=== PATIENT | female | born 1950 | race Caucasian/White ===

== ENCOUNTER → 2016-05-20 | Day surgery (SDC) | payer OTHER ==
--- NOTE | 2016-05-23 09:31 | PATH ---
Surgical Pathology Report Patient Name: VIRGIL ERWIN [facility]. Rec. #: [id number] /Age/Gender: 1950 (Age: 66) / F Account: [id number] Location: [facility] Taken: 05/20/2016 Received: 05/20/2016 Reported: 05/23/2016 Physicians: Carolyn Reis M.D. Specimen(s) Received RIGHT BREAST BIOPSY AT 12:30, 3-4CM FN Clinical History Rule out lipoma or other fat containing structure Final Diagnosis RIGHT BREAST, 12:30, 3-4 CM FROM NIPPLE, NEEDLE CORE BIOPSY: BENIGN FIBROFATTY TISSUE WITH FOCAL FAT NECROSIS AND ASSOCIATED CHRONIC INFLAMMATION. NO CARCINOMA IDENTIFIED. Comment: Recommend correlation with clinical and radiologic findings and follow up as clinically indicated. Electronically Signed Lc Cunningham M.D. Gross Description Received in formalin, labeled "right breast 12:30 3-4 cm from nipple," are 5 campbell-yellow, cylindrical portions of fibroadipose tissue ranging from 0.3-2.2 cm. in length and averaging 0.2 cm. in diameter. The specimen is submitted in toto in one cassette. Time to formalin fixation: 2 minutes Total formalin fixation time: Approximately 8 hours. [facility]/05/20/2016 [facility]/05/20/2016
== END | disposition home or self-care (01) ==
LOC: FRADUS-SUR 13:21
PROVIDERS: ATTEND Surgery
PROC: 0HBT3ZX Excision of Right Breast, Percutaneous Approach, Diagnostic (ICD-10-PCS; principal; 2016-05-20)
DX: N63 Unspecified lump in breast (principal); N64.1 Fat necrosis of breast
CPT/HCPCS: 19083; 87899; 88305-TC; A4648; G0206-TC

== ENCOUNTER 2016-12-04 14:51 | Emergency (ER) | payer OTHER ==
--- NOTE | 2016-12-04 15:05 | PDOC ---
Attending Attestation - Resident Resident Name: Louise De Anda - ED Attending Attestation I have performed the following: I have examined & evaluated the patient, The case was reviewed & discussed with the resident, I agree w/resident's findings & plan, Exceptions are as noted - Medical Decision Making 12/04/16 15:05 I, Dr. Leeann Redding, DO, attest that this document has been prepared under my direction and personally reviewed by me in its entirety. I further attest, that it accurately reflects all work, treatment, procedures and medical decision -making performed by me. 12/04/16 16:38 a/p: 66yo female with a brief episode of feeling lightheaded when she got up today in [employer] -labs -ekg -orthostatics -has had similar symptoms in the past when she stands too quickly -stopped her HCTZ earlier this week -reassess <Leeann Redding - Last Filed: 12/04/16 16:38> - HPI HPI: 12/04/16 16:44 Patient is a 66 year old female with a significant past medical history of HTN Who presents to the ED with complaints of dizziness that began this morning. Patient reports being at [employer] when she stood up and felt dizzy and lost her balance. She reports at time of incident the room was spinning followed by lightheadedness. PAtient states symptoms subsided after 5 minutes once she sat down. She reports having a slight headache but states that is her baseline. As per patient's daughter, patient appeared slightly pale when she experiencing the dizziness episode. Patient reports being prescribed gabapentin which she states she stopped taking as well as HCTZ which she states she stopped taking 1 week ago. She reports hx of dizziness when she gets up to fast. Denies chest pain, SOB. Denes vomiting, nausea. Denies dysuria, constipation, diarrhea. Denies any other symptoms. Allergies: None Social history: Lives with . No alcohol. No smoking. No illicit drugs, Surgical history: None PMD: Dr. Cruz - Physicial Exam PE: 12/04/16 16:44 GENERAL: Awake, alert, and fully oriented, in no acute distress HEAD: No signs of trauma EYES: PERRLA, EOMI, sclera anicteric, conjunctiva clear ENT: Auricles normal inspection, hearing grossly normal, nares patent, oropharynx clear without exudates. Moist mucosa NECK: Normal ROM, supple, no lymphadenopathy, JVD, or masses LUNGS: Breath sounds equal, clear to auscultation bilaterally. No wheezes, and no crackles HEART: Regular rate and rhythm, normal S1 and S2, no murmurs, rubs or gallops ABDOMEN: Soft, nontender, normoactive bowel sounds. No guarding, no rebound. No masses EXTREMITIES: +Trace Edema in legs bilaterally. Normal range of motion. No clubbing or cyanosis. No cords, erythema, or tenderness NEUROLOGICAL: Cranial nerves II through XII grossly intact. Normal speech, normal gait SKIN: Warm, Dry, normal turgor, no rashes or lesions noted. <Arron Barcenas - Last Filed: 12/04/16 16:48> Heart Score/ECG Review - ECG Intrepretation Comment:: 12/04/16 16:39 sinus at 74, nl axis, nl interval, q waves inferior leads that are age indeterminate, t wave inversions III <Leeann Redding - Last Filed: 12/04/16 16:38>
--- NOTE | 2016-12-04 15:18 | PDOC ---
History of Present Illness - General Stated Complaint: LIGHTHEADED Time Seen by Provider: 12/04/16 15:02 History Source: Patient - History of Present Illness Initial Comments: 12/04/16 15:18 CC: Dizziness (resolved) Patient is a 66 y.o. female with a PMH of HTN who presents to our ED this afternoon c/o an episode of dizziness while in [employer] this afternoon. Patient states she stood up as part of the worship ceremony and felt dizzy which she describes as the room spinning. Patient denies any associated LOC, confusion, visual changes, shortness of breath or chest pain. Patient states the episode resolved after sitting for 1-2 minutes. Patient notes her PCP increased her Hydrochlorothiazide dose two weeks previous, however she stopped taking the higher dose last Monday because she did not feel it was effective. Patient also notes recent UTI for which she recieved unknown Abx treatment finished on Monday (12/02). Past History - Past Medical History Home Medications: Ambulatory Orders Lisinopril 10 mg PO DAILY 12/04/16 Review of Systems - Review of Systems Constitutional: No: Chills, Fever HEENTM: No: Blurred Vision, Throat Pain Respiratory: No: Cough, Orthopnea Cardiac (ROS): Yes: Lightheadedness. No: Chest Pain, Irregular Heart Rate, Palpitations, Syncope ABD/GI: No: Constipated, Diarrhea, Nausea, Vomiting All Other Systems: Reviewed and Negative *Physical Exam - Physical Exam General Appearance: Yes: Nourished, Appropriately Dressed HEENT: positive: EOMI, Normal Voice Neck: positive: Trachea midline, Supple Respiratory/Chest: positive: Lungs Clear, Normal Breath Sounds Cardiovascular: positive: Regular Rhythm, Regular Rate, S1, S2 Gastrointestinal/Abdominal: positive: Normal Bowel Sounds, Soft Extremity: positive: Normal Capillary Refill, Normal Inspection, Pedal Edema ( Trace pedal edema) Integumentary: positive: Normal Color, Dry, Warm Neurologic: positive: Fully Oriented, Alert ED Treatment Course - LABORATORY CBC & Chemistry Diagram: 12/04/16 15:39 12/04/16 15:39 Medical Decision Making - Medical Decision Making 12/04/16 15:22 Patient is a 66 y.o. female who presents c/o an isolated episode of dizziness. Initial DDx is vasovagal vs. dehydration vs. cardiac arrhythmia. PLAN: 1. CBC, CMP, Mg 2. EKG 3. Orthostatic VS 12/04/16 16:25 EKG shows NSR (HR 74 BPM) with Q waves in Lead III and postive T waves in Lead II suggesting prior myocardial infarct. Normal OH and no QT prolongation. No discernible ST segment elevation/depression. Orthostatic VS negative. CBC, CMP within normal limits. Patient's UA was nitrite negative with 2+ blood. Urine culture sent, patient to keep scheduled appointment with PCP tomorrow. *DC/Admit/Observation/Transfer Diagnosis at time of Disposition: Lightheadedness - Discharge Dispostion Disposition: HOME Condition at time of disposition: Good Admit: No - Referrals Referrals: Willie Cruz MD [Primary Care Provider] - - Post Discharge Activity Forms/Work/School Notes: Back to Work
[2016-12-04 15:53] VITALS: BMI 76.4
[2016-12-04 15:54] LABS: BASOPHIL 0.2 % (0-2.0); EOSINOPHIL 0.7 % (0-4.5); MCH 30.6 pg (25.7-33.7); MCHC 33.4 g/dl (32.0-36.0); MEAN CELL VOLUME 91.5 fl (80-96); PLATELET COUNT 228 K/MM3 (134-434); RDW 13.2 % (11.6-15.6); WHITE BLOOD COUNT 8.7 K/mm3 (4.0-10.0)
[2016-12-04 16:24] LABS: URINE APPEARANCE CLEAR; URINE BILIRUBIN NEGATIVE (NEGATIVE); URINE BLOOD 2+ (NEGATIVE); URINE COLOR STRAW; URINE GLUCOSE (UA) NEGATIVE (NEGATIVE); URINE KETONE NEGATIVE (NEGATIVE); URINE LEUK ESTERASE NEGATIVE (NEGATIVE); URINE NITRITE NEGATIVE (NEGATIVE); URINE PROTEIN NEGATIVE (NEGATIVE); URINE UROBILINOGEN NEGATIVE mg/dL (0.2-1.0)
[2016-12-04 16:25] LABS: ALBUMIN 4.1 g/dl (3.4-5.0); ALK PHOS 111 U/L (45-117); ANION GAP 5 (8-16); BILIRUBIN,TOTAL 0.3 mg/dL (0.2-1.0); CALCIUM 9.4 mg/dL (8.5-10.1); CO2 31 mmol/L (21-32); CREATININE 0.8 mg/dL (0.55-1.02); GLUCOSE,RANDOM 91 mg/dL (74-106); SGOT/AST 19 U/L (15-37); SGPT/ALT 25 U/L (12-78); TOT PROT 7.7 g/dl (6.4-8.2)
[2016-12-04 16:51] LABS: URINE MUCUS RARE; URINE RBC 1 /hpf (0-3); URINE WBC 1 /hpf (3-5)
[2016-12-04 17:16] VITALS: BP 150/86; PULSE 72; TEMP 98.3
--- NOTE | 2016-12-05 11:52 | EKG ---
Test Reason : Blood Pressure : / mmHG Vent. Rate : 074 BPM Atrial Rate : 074 BPM P-R Int : 168 ms QRS Dur : 090 ms QT Int : 380 ms P-R-T Axes : 049 -23 -04 degrees QTc Int : 421 ms NORMAL SINUS RHYTHM INFERIOR INFARCT (CITED ON OR BEFORE 14-NOV-2006) CANNOT RULE OUT ANTERIOR INFARCT (CITED ON OR BEFORE 14-NOV-2006) ABNORMAL ECG WHEN COMPARED WITH ECG OF 14-NOV-2006 17:12, NO SIGNIFICANT CHANGE WAS FOUND Confirmed by LATIA MAN MD ([id number]) on 12/05/2016 11:52:41 AM Referred By: Confirmed By:LATIA MAN MD
== END 2016-12-04 17:35 | disposition home or self-care (01) ==
LOC: JER 14:51
DX: R52 Pain, unspecified (principal); I10 Essential (primary) hypertension
CPT/HCPCS: 36415; 80053; 81003; 81015; 83735; 85025; 87086; 93005; 93010; 99283-25

== ENCOUNTER 2020-02-04 06:07 | Day surgery (SDC) | payer OTHER ==
[2020-01-29 14:46] VITALS: BMI 29.0
[2020-02-04 10:23] VITALS: TEMP 98.3
[2020-02-04 10:57] VITALS: BP 114/71; PULSE 78
== END 2020-02-04 11:08 | disposition home or self-care (01) ==
LOC: JASU-ENDO 06:07
PROVIDERS: ATTEND Internal Medicine Gastroenterology
PROC: 0DBM8ZX Excision of Descending Colon, Via Natural or Artificial Opening Endoscopic, Diagnostic (ICD-10-PCS; principal; 2020-02-04 10:00)
DX: Z12.11 Encounter for screening for malignant neoplasm of colon (principal); D12.4 Benign neoplasm of descending colon; K64.8 Other hemorrhoids
CPT/HCPCS: 88305-TC

== ENCOUNTER 2020-11-09 15:29 | Emergency (ER) | payer OTHER ==
[2020-11-09 15:34] VITALS: BP 153/86; TEMP 99.1; BMI 29.2
[2020-11-09 16:58] LABS: BASO % 0.4 % (0-2.0); EOS % 1.4 % (0-4.5); HEMATOCRIT 37.9 % (32.4-45.2); LYMPH % 34.3 % (8-40); MCH 31.8 pg (25.7-33.7); MCHC 34.4 g/dl (32.0-36.0); MEAN CELL VOLUME 92.4 fl (80-96); MEAN PLT VOLUME 8.2 fl (7.5-11.1); MONO % 6.3 % (3.8-10.2); NEUT % 57.6 % (42.8-82.8); PLATELET COUNT 204 10^3/uL (134-434); RDW 12.7 % (11.6-15.6); WHITE BLOOD COUNT 9.1 K/mm3 (4.0-10.0)
[2020-11-09 17:20] LABS: CHLORIDE 106 mmol/L (98-107); SODIUM 142 mmol/L (136-145)
[2020-11-09 17:22] LABS: CALCIUM 8.7 mg/dL (8.5-10.1)
[2020-11-09 17:23] LABS: ALBUMIN 3.7 g/dl (3.4-5.0); ANION GAP 6 MMOL/L (8-16); BLOOD UREA NITROGEN 24.2 mg/dL (7-18); CO2 29 mmol/L (21-32); GLUCOSE,RANDOM 96 mg/dL (74-106)
[2020-11-09] MEDS ORDERED: LACTATED RINGERS SOLUTION 1000 ML INFUS.BAG IV ONE (17:24)
[2020-11-09 17:26] LABS: CREATININE 0.9 mg/dL (0.55-1.3); SGOT/AST 16 U/L (15-37); SGPT/ALT 15 U/L (13-61)
[2020-11-09 17:27] LABS: BILIRUBIN,TOTAL 0.2 mg/dL (0.2-1); TOT PROT 7.1 g/dl (6.4-8.2)
[2020-11-09 17:29] LABS: ALK PHOS 97 U/L (45-117)
[2020-11-09 17:32] VITALS: PULSE 93
== END 2020-11-09 19:37 | disposition home or self-care (01) ==
LOC: JER 15:29
DX: R00.2 Palpitations (principal); R42 Dizziness and giddiness
CPT/HCPCS: 36415; 71045-TC-FY; 71275-TC; 80053; 84443; 84484; 85025; 85379; 93005; 93010; 99285-25; C9803; Q9967; U0003; U0005

== ENCOUNTER 2023-05-29 05:14 | Day surgery (SDC) | payer OTHER ==
[2023-05-25 11:43] VITALS: BMI 26.1
[2023-05-29 08:30] VITALS: TEMP 98.2
[2023-05-29 09:01] VITALS: BP 119/60; PULSE 74; RESP 14
== END 2023-05-29 09:14 | disposition home or self-care (01) ==
LOC: JASU-ENDO 05:14
PROVIDERS: ATTEND Internal Medicine Gastroenterology
PROC: 0DBL8ZX Excision of Transverse Colon, Via Natural or Artificial Opening Endoscopic, Diagnostic (ICD-10-PCS; 2023-05-29)
PROC: 0DBH8ZX Excision of Cecum, Via Natural or Artificial Opening Endoscopic, Diagnostic (ICD-10-PCS; principal; 2023-05-29 08:00)
DX: Z12.11 Encounter for screening for malignant neoplasm of colon (principal); K63.89 Other specified diseases of intestine; K55.20 Angiodysplasia of colon without hemorrhage; K64.8 Other hemorrhoids; Z86.010 Personal history of colon polyps; I10 Essential (primary) hypertension
CPT/HCPCS: 88305-TC

== ENCOUNTER 2024-01-11 05:17 | Day surgery (SDC) | payer OTHER ==
[2024-01-03 10:59] VITALS: BMI 29.0
[2024-01-11 09:03] VITALS: TEMP 99.2
[2024-01-11 09:30] VITALS: BP 113/70; PULSE 74; RESP 16
== END 2024-01-11 09:33 | disposition home or self-care (01) ==
LOC: JASU-ENDO 05:17
PROVIDERS: ATTEND Internal Medicine Gastroenterology
PROC: 0DB78ZX Excision of Stomach, Pylorus, Via Natural or Artificial Opening Endoscopic, Diagnostic (ICD-10-PCS; 2024-01-11)
PROC: 0DB68ZX Excision of Stomach, Via Natural or Artificial Opening Endoscopic, Diagnostic (ICD-10-PCS; 2024-01-11)
PROC: 0DB98ZX Excision of Duodenum, Via Natural or Artificial Opening Endoscopic, Diagnostic (ICD-10-PCS; principal; 2024-01-11 08:30)
DX: K29.50 Unspecified chronic gastritis without bleeding (principal); K31.89 Other diseases of stomach and duodenum; Z87.19 Personal history of other diseases of the digestive system
CPT/HCPCS: 88305-TC; 88342-TC